=== PATIENT | male | born 1995 | race Caucasian/White ===

== ENCOUNTER 2024-01-06 11:57 | Day surgery (SDC) | payer OTHER ==
[~2024-01-06 11:57] MED LIST: KETO10TA2 PO
[2024-01-06] MEDS ORDERED: CEFAZOLIN SODIUM 1,000 MG VIAL IV ONE (16:15)
[2024-01-06] MEDS ORDERED: KETOROLAC TROMETHAMINE 30 MG VIAL IV ONE (18:15)
[2024-01-06] MEDS ORDERED: BUPIVACAINE HCL/PF 0.25% 30ML VIAL InF ONE (18:15)
[2024-01-06] MEDS ORDERED: MIRALAX17 GM PO (18:24)
[2024-01-06] MEDS ORDERED: TRAMADOL HCL50 MG PO (18:24)
[2024-01-06] MEDS ORDERED: TYLENOL ARTHRI650 MG PO (18:24)
[2024-01-06] MEDS ORDERED: KETO10TA2 PO (18:24)
== END 2024-01-06 21:00 | disposition home or self-care (01) ==
LOC: CIR.AMB 11:57
PROVIDERS: ATTEND Surgery
DX: K40.90 Unilateral inguinal hernia, without obstruction or gangrene, not specified as recurrent (principal); K42.0 Umbilical hernia with obstruction, without gangrene
CPT/HCPCS: 49650; 49592; C1781